=== PATIENT | male | born 1965 | race Caucasian/White ===

== ENCOUNTER 2018-05-04 17:12 | Emergency (ER) | payer BC ==
[2018-05-04] MEDS ORDERED: Ondansetron ODT TAB* 4 MG SL ONE (17:21)
[2018-05-04] MEDS ORDERED: NS 0.9% 1000 ML* 1,000 ML IV ONE ×2 (17:36→19:10)
--- NOTE | 2018-05-04 18:12 | UC ---
Nausea/Vomiting/Diarrhea HPI - HPI Summary HPI Summary: Patient complains of nausea and vomiting, dull headache, dizziness after working outside. Patient patient states he tried to cool himself off with cold showers, and drink Gatorade but was unable to keep it down. Took Tylenol at 4 PM for headache but was unable to keep it down. Denies fever, focal deficits, vision change, AMS, speech change, syncope, CP, SOB, abdominal pain or change in urine or BM. Medical history is migraines. - History of Current Complaint Chief Complaint: UCGeneralIllness Stated Complaint: VOMITING Time Seen by Provider: 05/04/18 17:21 Hx Obtained From: Patient Onset/Duration: Sudden Onset Severity Initially: Moderate Pain Intensity: 5 Pain Scale Used: 0-10 Numeric Aggravating Factor(s): Nothing Alleviating Factor(s): Nothing Nausea/Vomiting Presence: Nauseated, Vomiting Vomiting Characteristics: Nonbilious Diarrhea Presence: No - Allergies/Home Medications Allergies/Adverse Reactions: Allergies Allergy/AdvReac Type Severity Reaction Status Date / Time codeine Allergy Vomiting Verified 05/04/18 17:19 STEROID Allergy Vomiting Uncoded 05/04/18 17:20 PMH/Surg Hx/FS Hx/Imm Hx Previously Healthy: Yes Neurological History: Migraine - Surgical History Surgical History: Yes Surgery Procedure, Year, and Place: ELBOW SURGERY. HERNIA REPAIR. B/L KNEE MENISCUS REPAIR - Family History Known Family History: Positive: None - Social History Alcohol Use: Weekly Substance Use Type: None Smoking Status (MU): Never Smoked Tobacco Review of Systems Constitutional: Negative Skin: Negative Eyes: Negative ENT: Negative Respiratory: Negative Cardiovascular: Negative Gastrointestinal: Vomiting, Nausea Genitourinary: Negative Motor: Negative Neurovascular: Negative Musculoskeletal: Negative Neurological: Headache Psychological: Negative Is Patient Immunocompromised?: No All Other Systems Reviewed And Are Negative: Yes Physical Exam - Summary Physical Exam Summary: Patient states dizziness with position change or head movement. Neuro exam normal. No nystagmus noted. Finger to nose repeated rapidly inaccurately. [id number] repeated rapidly inaccurately. Patient able to ambulate on his own , but this produces dizziness and N/V. Triage Information Reviewed: Yes Appearance: Well-Appearing Vital Signs: Initial Vital Signs Temp 97.1 F 05/04/18 17:20 Pulse 77 05/04/18 17:20 Resp 20 05/04/18 17:20 BP 141/91 05/04/18 17:20 Pulse Ox 100 05/04/18 17:20 Vital Signs Reviewed: Yes Eye Exam: Normal Neck exam: Normal Respiratory Exam: Normal Cardiovascular Exam: Normal Abdominal Exam: Normal Musculoskeletal Exam: Normal Neurological Exam: Normal Psychological Exam: Normal Skin Exam: Normal Re-Evaluation - Re-Evaluation 1 Re-Evaluation Time: 20:11 Comment: After 2 L of fluid, 4 mg Zofran, 25 mg Phenergan, 650 mg Tylenol Patient states nausea and headache have improved, but patient states his legs feel cold and his head feels hot. Continues to have dizziness with movement of head. 2 Re-Evaluation Time: 20:57 Comment: Patient states his symptoms are significantly improved after Ativan. Patient unable to ambulate. Symptoms consistent with BPPV. 3 Re-Evaluation Time: 21:13 Comment: Patient started vomiting again when getting up to go home. Naus/Vom/Diarrhea Course/Dx - Course Course Of Treatment: Patient complains of nausea and vomiting, dull headache, dizziness after working outside. Patient patient states he tried to cool himself off with cold showers, and drink Gatorade but was unable to keep it down. Took Tylenol at 4 PM for headache but was unable to keep it down. Denies fever, focal deficits, vision change, AMS, speech change, syncope, CP, SOB, abdominal pain or change in urine or BM. Medical history is migraines. Neuro exam normal. Vital signs normal. Patient improved significantly with Ativan 1 mg IV. Symptoms consistent with BPPV. Patient states he has had issues with vertigo before. Patient ambulatory, states symptoms are much improved. Patient started vomiting again when he got up to go home. Advised patient he should go to the ED for better evaluation of persistent nausea vomiting and vertigo. Patient states he hashad prior hx of vertigo and would prefer to go home and go to the ED later if symptoms persist. Pt given an additional 4 mg of Zofran IV here, and Rx for Phenergan and meclizine. - Differential Dx/Diagnosis Provider Diagnoses: Vertigo. Nausea vomiting Condition At Discharge: Stable Discharge - Sign-Out/Discharge Documenting (check all that apply): Patient Departure All imaging exams completed and their final reports reviewed: No Studies - Discharge Plan Condition: Stable Disposition: HOME-RECOMMEND TO ED Prescriptions: Meclizine TAB* [Antivert 12.5 TAB*] 25 mg PO TID PRN 14 Days #42 tab PRN Reason: Vertigo Promethazine TAB* [Phenergan TAB*] 25 mg PO Q8H PRN 5 Days #15 tab PRN Reason: Nausea Patient Education Materials: Vertigo (ED), Acute Nausea and Vomiting (ED) Referrals: No Primary Care Phys,NOPCP [Primary Care Provider] - Additional Instructions: We recommend that you go to the ED now for further evaluation of persistent nausea vomiting and dizziness. - Billing Disposition and Condition Condition: STABLE Disposition: Home-Recommend to ED - Attestation Statements Provider Attestation: Per institutional requirements, I have reviewed the chart, however, I was not consulted specifically or made aware of this patient by the midlevel provider. I did not personally evaluate, interact with , or disposition this patient.
[2018-05-04] MEDS ORDERED: Acetaminophen TAB* 325 MG PO ONE (18:17)
[2018-05-04] MEDS ORDERED: Promethazine TAB* 25 MG PO ONE (19:11)
[2018-05-04] MEDS ORDERED: LORazepam INJ* 2 MG/ML 1 ML VIAL IV PUSH ONE (19:43)
[2018-05-04] MEDS ORDERED: Ondansetron INJ* 2 MG/ML VIAL IV ONE (21:11)
== END 2018-05-04 21:35 | disposition home health service (06) ==
LOC: UCEAST 17:12
DX: R42 Dizziness and giddiness (principal); R11.2 Nausea with vomiting, unspecified; Z88.5 Allergy status to narcotic agent; Z88.8 Allergy status to other drugs, medicaments and biological substances
CPT/HCPCS: 96360; 96361; 96374; 96375; 99202; A9270-GY; G0463; J2060; J2405

== ENCOUNTER 2019-10-18 20:14 | Emergency (ER) | payer BC ==
--- NOTE | 2019-10-18 20:17 | UC ---
FLU HPI - HPI Summary HPI Summary: c/o sore throat, sinus congestion, diarrhea x4 days. no sick contacts. did get the flu shot this year. - History of Current Complaint Chief Complaint: UCGeneralIllness Stated Complaint: FLU LIKE SYMPTOMS Time Seen by Provider: 10/18/19 20:16 Hx Obtained From: Patient Onset/Duration: Sudden Onset Severity Currently: Moderate Severity Initially: Moderate - Allergy/Home Medications Allergies/Adverse Reactions: Allergies Allergy/AdvReac Type Severity Reaction Status Date / Time codeine Allergy Vomiting Verified 10/18/19 20:26 STEROID Allergy Vomiting Uncoded 10/18/19 20:26 Home Medications: Home Medications Dm/Acetaminophen/Doxylamine [Vicks Nyquil Cold & Flu N] 1 liq PO PRN 10/18/19 [ History] guaiFENesin ER TAB [Mucinex*] 600 mg PO BID PRN 10/18/19 [History Confirmed ] PMH/Surg Hx/FS Hx/Imm Hx - Additional Past Medical History Additional PMH: no chronic illness Previously Healthy: Yes - Surgical History Surgical History: Yes Surgery Procedure, Year, and Place: ELBOW SURGERY. HERNIA REPAIR. B/L KNEE MENISCUS REPAIR - Family History Known Family History: Positive: None - Social History Alcohol Use: Weekly Substance Use Type: None Smoking Status (MU): Never Smoked Tobacco Review of Systems All Other Systems Reviewed And Are Negative: Yes Constitutional: Negative: Fever, Chills, Fatigue Skin: Negative: Bruising ENT: Positive: Sore Throat, Sinus Congestion Respiratory: Negative: Cough Gastrointestinal: Positive: Diarrhea - 2 episodes Musculoskeletal: Positive: Arthralgia - R shoulder, R elbow, R wrist, Edema - R wrist Neurological/Mental Status: Negative: Headache, Weakness, Paresthesia, Numbness Physical Exam Triage Information Reviewed: Yes Appearance: Well-Appearing Vital Signs Reviewed: Yes Eyes: Positive: Conjunctiva Clear ENT: Positive: Pharynx normal, TMs normal, Uvula midline. Negative: Sinus tenderness Neck: Positive: Supple, Nontender, No Lymphadenopathy Respiratory Exam: Normal Cardiovascular Exam: Normal Neurological: Positive: Alert Flu Course/Dx - Course Course Of Treatment: Flu like illness, acute w/ no resp. distress and good O2. rapid flu neg. toady. we disc ways to manage symptoms. self limiting. BP slightly elevated but he will disc w/ pcp. - Differential Dx/Diagnosis Differential Diagnosis/HQI/PQRI: Influenza, Other Provider Diagnosis: Flu-like symptoms Discharge ED - Sign-Out/Discharge Documenting (check all that apply): Patient Departure All imaging exams completed and their final reports reviewed: No Studies - Discharge Plan Condition: Good Disposition: HOME Patient Education Materials: Viral Syndrome (ED) Forms: *Work Release Referrals: Boone Schilling MD [Primary Care Provider] - Additional Instructions: Please read patient education. - Billing Disposition and Condition Condition: GOOD Disposition: Home - Attestation Statements Provider Attestation: This patient was not seen by me. I was available for consult. Chart reviewed. HILDA
[2019-10-18 20:26] VITALS: BP 141/98
[2019-10-18 20:48] LABS: Influenza A Molecular Negative (Negative); Influenza B Molecular Negative (Negative)
== END 2019-10-18 21:00 | disposition home or self-care (01) ==
LOC: UCEAST 20:14
DX: J02.9 Acute pharyngitis, unspecified (principal); R09.81 Nasal congestion; R19.7 Diarrhea, unspecified; Z88.5 Allergy status to narcotic agent; Z88.8 Allergy status to other drugs, medicaments and biological substances; R03.0 Elevated blood-pressure reading, without diagnosis of hypertension
CPT/HCPCS: 99211; G0463